=== PATIENT | female | born 1935 | race Caucasian/White ===

== ENCOUNTER 2025-04-26 13:01 | Emergency (ER) | payer OTHER, SELFPAY ==
[2025-04-26 13:05] VITALS: BP 114/71
[2025-04-26 13:30] VITALS: BMI 24.0
[2025-04-26 15:02] VITALS: BP 112/84
--- NOTE | 2025-04-26 15:42 | ED.GENMED ---
History of Present Illness
General
Chief Complaint: Fall
Source: patient
Time Seen by Provider: 04/26/25 13:46
History of Present Illness
History of Present Illness:
89-year-old female presents to the emergency room for evaluation of injuries from a fall. Patient states that she was bringing in groceries and while attempting to 'pull herself in the door her hand slipped from the door jam and she fell backwards.
She struck the back of her head. She is also complaining of some low back pain. Additionally she has an abrasion to her right elbow. No loss of conscious. Patient denies any headache or nausea. She does take Xarelto.
Past History
Past History
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
ED Past Surgical History: Other (Patient has had a CABG in the past )
Social History
Tobacco: Non-smoker
Living: alone
Employment: Retired
Phy Exam
Physical Exam
Physical Exam:
General: Awake, Alert, Oriented X3. No acute distress.
Vitals: unremarkable
Head: Small abrasion posterior scalp, no significant hematoma
Eyes: Pupils equal, EOMI
Throat: Airway intact, no exudates
Neck: Trachea midline no tenderness to palpation midline cervical spine
Lungs: Clear and equal b/l
Heart: Regular rate, no murmurs
Abd: Soft, Nontender, No pulsatile mass
Back: No tenderness palpation along the midline thoracic or lumbar spine.
Neuro: Nonfocal
Skin: Warm, dry, no rash
Extremities: pulses equal b/l, no edema. Abrasion and mild skin tear right elbow. Range of motion intact at the elbow.
Course
Orders/Labs/Results
Orders:
Orders
04/26/25 13:06
CT Head W/o Iv Contrast Urgent
Comment:
Reason For Exam: fell and hit head. pt is on bld thinner
Vital Signs
Initial and Last Documented VS:
Initial Vital Signs
Temp Pulse Resp BP Pulse Ox
97.6 F 77 24 114/71 92
04/26/25 13:05 04/26/25 13:05 04/26/25 13:05 04/26/25 13:05 04/26/25 13:05
Last Documented Vital Signs
Temp Pulse Resp BP Pulse Ox
97.6 F 56 18 112/84 97
04/26/25 13:05 04/26/25 15:02 04/26/25 15:02 04/26/25 15:02 04/26/25 15:43
MDM/Problems Addressed
Differential Diagnosis Includes:
Subdural, cervical spine fracture, muscle strain,
MDM/Problems Addressed:
Patient presents with injuries from a fall. Head CT shows no acute abnormality. Right elbow abrasion is superficial and does not require any specific intervention. Dressed with Neosporin dressing. Scalp abrasion also minor. Patient ambulated
without difficulty. I believe her back pain is muscular in nature. Low suspicion for fracture given that she has no midline tenderness to palpation and she is able to weight-bear and ambulate.
*Radiology
Radiology exam reviewed: radiology read reviewed
*Pulse Oximetry
SaO2: 97
Nasal Cannula flow liters per minute: 2
Oxygen Mode of Delivery: Room air
Patient hypoxic: yes
Comment: Patient has COPD and uses oxygen at night
*Critical Care Note
Total Time (30-74mins, 75-104mins- exclusive of procedures): Not Applicable
ED Attending Note
-
Portions of this chart may have been created with voice recognition software.� Occasional wrong word or��sound alike� substitutions may have occurred due to the inherent limitations of voice recognition software.
Discharge Plan
Departure
Patient Disposition: Home (Routine Discharge)
Date of Disposition: 04/26/25
Time of Disposition: 15:42
Patient with high blood pressure during this ER visit?: No
Condition: Good
Discharge Problem:
Head injury, Abrasion of elbow, Low back pain
Instructions: Head Injury in Adults (DC), Preventing falls in adults, Skin Abrasions (DC), Low back pain - ED (DC)
Prescriptions:
No Action
isosorbide mononitrate 30 MG tablet extended release 24 hr
30 mg PO DAILY
nitroglycerin 0.4 MG tablet, sublingual
0.4 mg sublingual [id number] PRN (Reason: CHEST PAIN)
magnesium 250 MG tablet
500 mg PO DAILY
cholecalciferol (vitamin D3) [Vitamin D3] 2,000 UNIT capsule
2,000 unit PO DAILY
warfarin [Jantoven] 5 MG tablet
5 mg PO QPM
diltiazem HCl 90 MG tablet
180 mg PO DAILY
Otc Eye Drop
1 drp BOTH EYES HS
Patient Comments:
'LUBRICATING DROP'
Lasix:
1 tab PO DAILY
Patient Comments:
DGTR STATES WAS PRESCRIBED LASIX 01/2013 'BUT SHE WONT TAKE CAUSE SHE DOESNT LIKE IT'
enoxaparin 80 MG/0.8 ML syringe
80 mg SC Q12H Qty: 2 0RF
amoxicillin-pot clavulanate 1 TABLET tablet
1 tab PO Q12 Qty: 20 0RF
ipratropium-albuterol 3 ML solution for nebulization
3 ml inhalation R Q4HPRN PRN (Reason: SOB) Qty: 10 0RF
guaifenesin 100 MG/5 ML liquid
100 mg PO Q12 PRN (Reason: cough) Qty: 10 0RF
oxycodone-acetaminophen 5 MG/325 MG tablet
1 tab PO Q4HPRN PRN (Reason: moderate pain) Qty: 10 0RF
ipratropium-albuterol 3 ML solution for nebulization
3 ml inhalation R QID PRN (Reason: shortness of breath) Qty: 0 0RF
Referrals:
UNKNOWN - PT DOES,NOT KNOW [Family Provider]
Interventions
Interventions:
*Risk Screen - Suicide Last Done: 04/26/25 13:07
*General Assessment Last Done: 04/26/25 13:07
*Nursing Disposition Last Done: 04/26/25 16:07
ED-Musculoskeletal Assessment Last Done: 04/26/25 13:30
ED- Neurological Assessment Last Done: 04/26/25 13:30
ED-Skin Assessment Last Done: 04/26/25 13:30
Discharge Date and Time
Discharge Date/Time: 04/26/25 16:07
Print Language: INDONESIAN
== END 2025-04-26 16:07 | disposition home or self-care (01) ==
LOC: EMR 13:01
PROVIDERS: EMERGENCY PHYSICIAN Emergency Medicine
DX: S50.311A Abrasion of right elbow, initial encounter (principal); S00.01XA Abrasion of scalp, initial encounter; M54.50 Low back pain, unspecified; W01.0XXA Fall on same level from slipping, tripping and stumbling without subsequent striking against object, initial encounter; I25.10 Atherosclerotic heart disease of native coronary artery without angina pectoris; Z95.1 Presence of aortocoronary bypass graft
CPT/HCPCS: 99284; 70450

== ENCOUNTER → 2025-07-05 11:24 | Outpatient (REF) | payer OTHER, SELFPAY | LOC: RAD 11:24 | PROVIDERS: ATTENDING PHYSICIAN Student in an Organized Health Care Education/Training Program; FAMILY PHYSICIAN Family Medicine | DX: R07.9 Chest pain, unspecified (principal); I77.9 Disorder of arteries and arterioles, unspecified | CPT/HCPCS: 75635; Q9967 ==